=== PATIENT | female | born 1990 | race African-American/Black ===

== ENCOUNTER 2017-01-06 07:54 | Emergency (ER) | payer MEDICAID, OTHER ==
[~2017-01-06] VITALS: Ht 165.1 cm; Wt 66.0 kg
[~2017-01-06 07:54] MED LIST: IRON PO; MEDR150D9 IM; PRENATAL PO
[2017-01-06] MEDS ORDERED: MORPHINE SULFATE 4 MG/ML CPJ (NOT FOR IM USE) IV STA (08:35)
[2017-01-06] MEDS ORDERED: ONDANSETRON HCL 4MG/2ML VIAL IV STA (08:35)
[2017-01-06] MEDS ORDERED: SODIUM CHLORIDE 0.9% 1,000 ML IV ONE (08:35)
[2017-01-06 08:52] LABS: BASOPHILS % 0.3 % (0.0-2.0); EOSINOPHILS % 0.3 % (0.0-5.0); HEMATOCRIT. 39.5 % (36.0-48.0); HEMOGLOBIN. 13.5 g/dL (12.0-16.0); LYMPHOCYTES % 20.6 % (20.0-50.0); MEAN CORPUSCULAR HEMOGLOBIN 33.3 pg (28.0-32.0); MEAN CORPUSCULAR VOLUME 97.4 fL (81.0-99.0); MEAN PLATELET VOLUME 10.3 fl (7.4-10.4); NEUTROPHILS % 72.8 % (40.0-76.0); PLATELET 164 x1000/uL (130-400); RED BLOOD CELL COUNT 4.06 mill/uL (4.2-5.4); RED CELL DISTRIBUTION WIDTH 12.7 % (11.6-14.6)
[2017-01-06 09:06] LABS: CARBON DIOXIDE 23 mEq/L (21-32); CHLORIDE 107 mEq/L (98-107)
[2017-01-06 11:20] LABS: CLARITY URINE CLEAR (CLEAR); COLOR URINE YELLOW (YELLOW); GLUCOSE URINE NEGATIVE (NEGATIVE); KETONES URINE 1+ (NEGATIVE); LEUKOCYTE ESTERASE URINE NEGATIVE (NEGATIVE); NITRITE URINE NEGATIVE (NEGATIVE); OCCULT BLOOD URINE NEGATIVE (NEGATIVE); PROTEIN URINE NEGATIVE (NEGATIVE); SPECIFIC GRAVITY URINE 1.013 (1.005-1.030)
[2017-01-06 11:37] LABS: *AMPHETAMINES SCREEN URINE NEGATIVE (NEGATIVE); *BARBITURATES SCREEN URINE NEGATIVE (NEGATIVE); *BENZODIAZEPINES SCREEN URINE NEGATIVE (NEGATIVE); *COCAINE SCREEN URINE NEGATIVE (NEGATIVE); METHADONE URINE SCREEN NEGATIVE (NEGATIVE); PHENCYCLIDINE URINE SCREEN NEGATIVE (NEGATIVE)
[2017-01-06 11:46] LABS: CANNABINOID URINE SCREEN PRESUMTIVE POSITIVE (NEGATIVE); OPIATES URINE SCREEN PRESUMTIVE POSITIVE (NEGATIVE)
[2017-01-06] MEDS ORDERED: DICYCLOMINE HCL 10MG/ML 2ML AMP IM STA (13:29)
[2017-01-06] MEDS ORDERED: MORPHINE SULFATE 4 MG/ML CPJ (NOT FOR IM USE) IV ONE (13:30)
[2017-01-06] MEDS ORDERED: ONDANSETRON HCL 4MG/2ML VIAL IV ONE (13:30)
[2017-01-06 13:55] VITALS: BP 174/65
== END 2017-01-06 15:13 | disposition home or self-care (01) ==
LOC: ER 08:19
DX: R11.2 Nausea with vomiting, unspecified (principal); K59.00 Constipation, unspecified; R19.7 Diarrhea, unspecified; Z88.0 Allergy status to penicillin; Z87.440 Personal history of urinary (tract) infections
CPT/HCPCS: 36415; 80053; 80305; 81003; 81025; 83690; 85025; 96361; 96372; 96374; 96375; 96376; 99285; J0500; J2270; J2405; J7030; Z7610

== ENCOUNTER 2017-09-23 06:09 | Emergency (ER) | payer MEDICAID ==
[~2017-09-23] VITALS: Ht 165.1 cm; Wt 64.0 kg
[2017-09-23] MEDS ORDERED: ONDANSETRON HCL 4MG/2ML VIAL IV STA (07:01)
[2017-09-23] MEDS ORDERED: SODIUM CHLORIDE 0.9% 1,000 ML IV ONE (07:01)
[2017-09-23] MEDS ORDERED: MORPHINE SULFATE 4 MG/ML CPJ (NOT FOR IM USE) IV STA (07:01)
[2017-09-23 07:29] LABS: HEMATOCRIT. 37.6 % (36.0-48.0); MEAN CORPUSCULAR HEMOGLOBIN 33.1 pg (28.0-32.0); MEAN CORPUSCULAR VOLUME 95.7 fL (81.0-99.0); MEAN PLATELET VOLUME 9.7 fl (7.4-10.4); PLATELET 183 x1000/uL (130-400); RED BLOOD CELL COUNT 3.92 mill/uL (4.2-5.4); RED CELL DISTRIBUTION WIDTH 12.3 % (11.6-14.6)
[2017-09-23 07:37] LABS: INR 1.1
[2017-09-23 07:40] LABS: CHLORIDE 108 mEq/L (98-107)
[2017-09-23 08:09] LABS: HCG SCREEN NEGATIVE
[2017-09-23 09:11] LABS: PLATELET ESTIMATE NORMAL
[2017-09-23 10:00] LABS: CLARITY URINE CLOUDY (CLEAR); COLOR URINE YELLOW (YELLOW); KETONES URINE TRACE (NEGATIVE); LEUKOCYTE ESTERASE URINE 2+ (NEGATIVE); NITRITE URINE POSITIVE (NEGATIVE); OCCULT BLOOD URINE TRACE (NEGATIVE); PH URINE 6.5 (4.5-8.0); PROTEIN URINE 1+ (NEGATIVE); SPECIFIC GRAVITY URINE 1.014 (1.005-1.030)
[2017-09-23] MEDS ORDERED: CEFTRIAXONE 1 G PREMIX 50 ML IV ONE (11:15)
[2017-09-23] MEDS ORDERED: KETOROLAC 30MG/ML VIAL IV ONE (13:30)
[2017-09-23 15:37] VITALS: BP 124/68
== END 2017-09-23 15:44 | disposition home or self-care (01) ==
LOC: ER 06:09
DX: N12 Tubulo-interstitial nephritis, not specified as acute or chronic (principal); R42 Dizziness and giddiness; R07.9 Chest pain, unspecified; R06.02 Shortness of breath; Z88.0 Allergy status to penicillin
CPT/HCPCS: 36415; 71045; 76770; 80053; 81003; 83605; 83690; 84703; 85025; 85610; 87077; 87086; 87186; 96361; 96365; 96366; 96375; 99285; J0696; J1885; J2270; J2405; J7030; Z7610

== ENCOUNTER 2019-03-08 08:02 | Emergency (ER) | payer MEDICAID ==
[~2019-03-08] VITALS: Ht 167.6 cm; Wt 82.0 kg
[2019-03-08] MEDS ORDERED: ONDANSETRON HCL 4MG/2ML INJ IV STA (08:22)
[2019-03-08] MEDS ORDERED: MORPHINE SULFATE 4 MG/ML CPJ (NOT FOR IM USE) IV STA (08:22)
[2019-03-08 09:09] LABS: CHLORIDE 108 mEq/L (98-107)
[2019-03-08 09:10] LABS: PROTHROMBIN TIME 10.1 sec (9.6-11.0)
[2019-03-08 09:12] LABS: BASOPHILS % 0.2 % (0.0-2.0); EOSINOPHILS % 0.1 % (0.0-5.0); HEMATOCRIT. 37.7 % (36.0-48.0); HEMOGLOBIN. 12.9 g/dL (12.0-16.0); LYMPHOCYTES % 20.1 % (20.0-50.0); MEAN CORPUSCULAR HEMOGLOBIN 33.6 pg (28.0-32.0); MEAN CORPUSCULAR VOLUME 98.1 fL (81.0-99.0); MEAN PLATELET VOLUME 9.6 fl (7.4-10.4); MONOCYTES % 6.2 % (2.0-8.0); NEUTROPHILS % 73.4 % (40.0-76.0); PLATELET 221 x1000/uL (130-400); RED BLOOD CELL COUNT 3.84 mill/uL (4.2-5.4); RED CELL DISTRIBUTION WIDTH 12.5 % (11.6-14.6)
[2019-03-08] MEDS ORDERED: ACETAMINOPHEN 325MG TABLET PO ONE (09:15)
[2019-03-08 09:58] LABS: CLARITY URINE CLEAR (CLEAR); COLOR URINE YELLOW (YELLOW); KETONES URINE 2+ (NEGATIVE); LEUKOCYTE ESTERASE URINE 1+ (NEGATIVE); NITRITE URINE NEGATIVE (NEGATIVE); OCCULT BLOOD URINE NEGATIVE (NEGATIVE); PH URINE 7.5 (4.5-8.0); PROTEIN URINE NEGATIVE (NEGATIVE); SPECIFIC GRAVITY URINE 1.014 (1.005-1.030)
[2019-03-08 12:15] VITALS: BP 146/84
== END 2019-03-08 12:30 | disposition home or self-care (01) ==
LOC: ER 08:08
DX: O26.891 Other specified pregnancy related conditions, first trimester (principal); Z3A.01 Less than 8 weeks gestation of pregnancy; Z87.440 Personal history of urinary (tract) infections; K59.00 Constipation, unspecified; Z88.0 Allergy status to penicillin; Z79.899 Other long term (current) drug therapy
CPT/HCPCS: 36415; 71045; 76801; 76817; 80053; 81003; 81025; 83690; 84702; 85025; 85610; 93005; 96374; 99284; J2405; J2270

== ENCOUNTER 2019-03-18 11:48 | Inpatient (IN) | payer MEDICAID ==
[~2019-03-18] VITALS: Ht 165.1 cm; Wt 81.6 kg
[2019-03-18] MEDS ORDERED: MORPHINE SULFATE 4 MG/ML CPJ (NOT FOR IM USE) IV STA (13:06)
[2019-03-18] MEDS ORDERED: ONDANSETRON HCL 4MG/2ML INJ IV STA (13:06)
[2019-03-18] MEDS ORDERED: KETOROLAC 30MG/ML VIAL IV STA (13:06)
[2019-03-18] MEDS ORDERED: SODIUM CHLORIDE 0.9% 1000ML BAG (SEPSIS BOLUS) IV ONE (13:15)
[2019-03-18 13:30] LABS: CHLORIDE 106 mEq/L (98-107); PROTHROMBIN TIME 9.8 sec (9.6-11.0)
[2019-03-18 13:41] LABS: CLARITY URINE CLOUDY (CLEAR); COLOR URINE YELLOW (YELLOW); HCG SCREEN POSITIVE; KETONES URINE NEGATIVE (NEGATIVE); LEUKOCYTE ESTERASE URINE 3+ (NEGATIVE); NITRITE URINE NEGATIVE (NEGATIVE); OCCULT BLOOD URINE TRACE (NEGATIVE); PROTEIN URINE TRACE (NEGATIVE)
[2019-03-18 13:46] LABS: BASOPHILS % 0.2 % (0.0-2.0); EOSINOPHILS % 0.1 % (0.0-5.0); HEMATOCRIT. 37.7 % (36.0-48.0); HEMOGLOBIN. 12.9 g/dL (12.0-16.0); LYMPHOCYTES % 12.8 % (20.0-50.0); MEAN CORPUSCULAR HEMOGLOBIN 33.4 pg (28.0-32.0); MEAN CORPUSCULAR VOLUME 97.2 fL (81.0-99.0); MEAN PLATELET VOLUME 9.7 fl (7.4-10.4); MONOCYTES % 5.5 % (2.0-8.0); NEUTROPHILS % 81.4 % (40.0-76.0); PLATELET 231 x1000/uL (130-400); RED BLOOD CELL COUNT 3.88 mill/uL (4.2-5.4); RED CELL DISTRIBUTION WIDTH 12.8 % (11.6-14.6)
[2019-03-18 14:02] LABS: *AMPHETAMINES SCREEN URINE NEGATIVE (NEGATIVE); *BARBITURATES SCREEN URINE NEGATIVE (NEGATIVE); *BENZODIAZEPINES SCREEN URINE NEGATIVE (NEGATIVE); *COCAINE SCREEN URINE NEGATIVE (NEGATIVE); METHADONE URINE SCREEN NEGATIVE (NEGATIVE); OPIATES URINE SCREEN NEGATIVE (NEGATIVE)
[2019-03-18 14:03] LABS: PHENCYCLIDINE URINE SCREEN NEGATIVE (NEGATIVE)
[2019-03-18 14:12] LABS: CANNABINOID URINE SCREEN PRESUMTIVE POSITIVE (NEGATIVE)
[2019-03-18] MEDS ORDERED: CLINDAMYCIN 600 MG in DEXTROSE 5% WATER 50 ML IV ONE (16:00)
[2019-03-18] MEDS ORDERED: CLINDAMYCIN 600MG PREMIX 50 ML IV SCH (16:45)
[2019-03-18 20:00] VITALS: BP 138/78
[2019-03-18 20:30] VITALS: BP 138/78
[2019-03-18] MEDS ORDERED: MEDR150D9 IM (21:07)
[2019-03-18] MEDS ORDERED: LACTATED RINGERS 1,000 ML IV SCH (21:30)
[2019-03-18] MEDS ORDERED: CLINDAMYCIN 600 MG in DEXTROSE 5% WATER 50 ML IV SCH (22:00)
[2019-03-18] MEDS: ACETAMINOPHEN WITH CODEINE 300/30MG TABLET PO PRN (22:06)
[2019-03-18] MEDS: CLINDAMYCIN 600MG PREMIX 50 ML IV SCH (23:26)
[2019-03-18] MEDS: ONDANSETRON HCL 4MG/2ML INJ IV PRN (23:42)
[2019-03-19] VITALS: BP 148/81
[2019-03-19 04:00] VITALS: BP 120/66
[2019-03-19] MEDS: CLINDAMYCIN 600MG PREMIX 50 ML IV SCH ×3 (06:12→23:17)
[2019-03-19 07:15] LABS: HEMATOCRIT 31.2 % (36.0-48.0); HEMOGLOBIN 10.7 g/dL (12.0-16.0); MEAN CORPUSCULAR HEMOGLOBIN 33.6 pg (28.0-32.0); MEAN CORPUSCULAR VOLUME 98.3 fL (81.0-99.0); PLATELET 181 x1000/uL (130-400); RED BLOOD CELL COUNT 3.18 mill/uL (4.2-5.4); RED CELL DISTRIBUTION WIDTH 12.6 % (11.6-14.6)
[2019-03-19 08:00] VITALS: BP 120/73
[2019-03-19] MEDS: PRENATAL VIT/FE FUMARATE/FA TABLET PO SCH (08:59)
[2019-03-19] MEDS: ONDANSETRON HCL 4MG/2ML INJ IV PRN ×2 (08:59→20:30)
[2019-03-19] MEDS: ACETAMINOPHEN WITH CODEINE 300/30MG TABLET PO PRN ×3 (08:59→19:49)
[2019-03-19 12:00] VITALS: BP 135/75
[2019-03-19 16:00] VITALS: BP 141/75
[2019-03-19] MEDS: LACTATED RINGERS 1,000 ML IV SCH (19:58)
[2019-03-19 20:00] VITALS: BP 156/82
[2019-03-20] VITALS: BP 148/79
[2019-03-20] MEDS: ACETAMINOPHEN WITH CODEINE 300/30MG TABLET PO PRN ×3 (01:07→20:17)
[2019-03-20 04:00] VITALS: BP 148/79
[2019-03-20] MEDS: CLINDAMYCIN 600MG PREMIX 50 ML IV SCH ×3 (06:18→22:39)
[2019-03-20] MEDS: LACTATED RINGERS 1,000 ML IV SCH ×2 (06:24→17:53)
[2019-03-20] MEDS: PRENATAL VIT/FE FUMARATE/FA TABLET PO SCH (08:26)
[2019-03-20] MEDS: ONDANSETRON HCL 4MG/2ML INJ IV PRN ×2 (09:36→20:19)
[2019-03-20 10:45] LABS: HEMATOCRIT. 30.4 % (36.0-48.0); HEMOGLOBIN. 10.4 g/dL (12.0-16.0); MEAN CORPUSCULAR HEMOGLOBIN 33.4 pg (28.0-32.0); MEAN CORPUSCULAR VOLUME 97.4 fL (81.0-99.0); MEAN PLATELET VOLUME 9.1 fl (7.4-10.4); PLATELET 163 x1000/uL (130-400); RED BLOOD CELL COUNT 3.12 mill/uL (4.2-5.4); RED CELL DISTRIBUTION WIDTH 12.4 % (11.6-14.6)
[2019-03-20 13:31] LABS: CLARITY URINE CLEAR (CLEAR); COLOR URINE YELLOW (YELLOW); KETONES URINE 1+ (NEGATIVE); LEUKOCYTE ESTERASE URINE 2+ (NEGATIVE); NITRITE URINE NEGATIVE (NEGATIVE); OCCULT BLOOD URINE TRACE (NEGATIVE); PROTEIN URINE 1+ (NEGATIVE); SPECIFIC GRAVITY URINE 1.007 (1.005-1.030)
[2019-03-20 17:17] LABS: PLATELET ESTIMATE NORMAL
[2019-03-20 20:00] VITALS: BP 139/76
[2019-03-21] VITALS: BP 130/80
[2019-03-21] MEDS: LACTATED RINGERS 1,000 ML IV SCH (03:02)
[2019-03-21 04:00] VITALS: BP 136/90
[2019-03-21] MEDS: CLINDAMYCIN 600MG PREMIX 50 ML IV SCH ×3 (06:55→23:33)
[2019-03-21] MEDS: PRENATAL VIT/FE FUMARATE/FA TABLET PO SCH (09:27)
[2019-03-21] MEDS ORDERED: GENTAMICIN 100MG PREMIX 100 ML IV SCH (11:45)
[2019-03-21] MEDS ORDERED: GENTAMICIN 120MG PREMIX 100 ML IV NR (13:00)
[2019-03-21] MEDS: ONDANSETRON HCL 4MG/2ML INJ IV PRN (13:04)
[2019-03-21] MEDS: HYDROCODONE/ACETAMINOPHEN 5/325MG TABLET PO PRN ×2 (15:06→23:43)
[2019-03-21 20:00] VITALS: BP 127/70
[2019-03-21] MEDS: GENTAMICIN 100MG PREMIX 50 ML IV SCH (20:45)
[2019-03-22 00:41] VITALS: BP 132/83
[2019-03-22 04:00] VITALS: BP 111/63
[2019-03-22] MEDS: GENTAMICIN 100MG PREMIX 50 ML IV SCH ×3 (05:47→21:47)
[2019-03-22] MEDS: LACTATED RINGERS 1,000 ML IV SCH ×2 (05:48→13:30)
[2019-03-22] MEDS: CLINDAMYCIN 600MG PREMIX 50 ML IV SCH ×3 (06:51→23:25)
[2019-03-22 07:47] LABS: HEMATOCRIT 30.2 % (36.0-48.0); HEMOGLOBIN 10.5 g/dL (12.0-16.0); MEAN CORPUSCULAR HEMOGLOBIN 33.5 pg (28.0-32.0); MEAN CORPUSCULAR VOLUME 96.8 fL (81.0-99.0); PLATELET 208 x1000/uL (130-400); RED BLOOD CELL COUNT 3.12 mill/uL (4.2-5.4); RED CELL DISTRIBUTION WIDTH 12.6 % (11.6-14.6)
[2019-03-22 08:00] VITALS: BP 130/82
[2019-03-22] MEDS: PRENATAL VIT/FE FUMARATE/FA TABLET PO SCH (08:55)
[2019-03-22 09:14] LABS: CHLORIDE 102 mEq/L (98-107)
[2019-03-22 12:00] VITALS: BP 143/72
[2019-03-22] MEDS: ONDANSETRON HCL 4MG/2ML INJ IV PRN (14:14)
[2019-03-22 16:00] VITALS: BP 141/75
[2019-03-22] MEDS: HYDROCODONE/ACETAMINOPHEN 5/325MG TABLET PO PRN (16:47)
[2019-03-22 20:00] VITALS: BP 108/63
[2019-03-22] MEDS ORDERED: POTASSIUM CHLORIDE 20MEQ TABLET SR PO NR (22:00)
[2019-03-23] VITALS: BP_SYST 125; BP_SYST 83; BP_DIAS 83
[2019-03-23 04:00] VITALS: BP 116/65
[2019-03-23] MEDS: GENTAMICIN 100MG PREMIX 50 ML IV SCH ×2 (05:31→12:20)
[2019-03-23 06:08] LABS: CHLORIDE 104 mEq/L (98-107)
[2019-03-23 06:26] LABS: GENTAMICIN TROUGH 0.4 ug/mL (<2.0)
[2019-03-23] MEDS: CLINDAMYCIN 600MG PREMIX 50 ML IV SCH (06:54)
[2019-03-23 06:57] LABS: HEMATOCRIT. 33.1 % (36.0-48.0); HEMOGLOBIN. 11.4 g/dL (12.0-16.0); MEAN CORPUSCULAR HEMOGLOBIN 33.5 pg (28.0-32.0); MEAN CORPUSCULAR VOLUME 96.9 fL (81.0-99.0); MEAN PLATELET VOLUME 9.5 fl (7.4-10.4); PLATELET 250 x1000/uL (130-400); RED BLOOD CELL COUNT 3.41 mill/uL (4.2-5.4)
[2019-03-23] MEDS: PRENATAL VIT/FE FUMARATE/FA TABLET PO SCH (08:39)
[2019-03-23 08:54] LABS: CHLORIDE 103 mEq/L (98-107)
[2019-03-23 13:36] LABS: PLATELET ESTIMATE NORMAL
[2019-03-23 17:02] VITALS: BP 118/77
== END 2019-03-23 17:25 | disposition home or self-care (01) | DRG 566 ==
LOC: ER 12:08 → ENRESERV 15:29 → CANRESERV 15:29 → 6EST 15:56 → EDBEDREQ 16:07 → ENRESERV 19:17
PROVIDERS: ADMIT Obstetrics & Gynecology; ATTEND Obstetrics & Gynecology
DX: O23.01 Infections of kidney in pregnancy, first trimester (principal); O99.321 Drug use complicating pregnancy, first trimester; O99.281 Endocrine, nutritional and metabolic diseases complicating pregnancy, first trimester; F12.10 Cannabis abuse, uncomplicated; E86.0 Dehydration; O99.011 Anemia complicating pregnancy, first trimester; D64.9 Anemia, unspecified; B96.20 Unspecified Escherichia coli [E. coli] as the cause of diseases classified elsewhere; Z3A.08 8 weeks gestation of pregnancy; Z79.899 Other long term (current) drug therapy; Z88.0 Allergy status to penicillin; Z88.1 Allergy status to other antibiotic agents
CPT/HCPCS: 36415; 76700; 76801; 80048; 80170; 80305; 81003; 83605; 84145; 84484; 84702; 84703; 85027; 86850; 86900; 87077; 87186; 93005; 99285; C1893; J1580; J2270; J2405; J3490; J7030; J7060; J7120

== ENCOUNTER 2019-08-03 21:20 | Observation (INO) | payer MEDICAID ==
[~2019-08-03] VITALS: Ht 167.6 cm; Wt 85.3 kg
[~2019-08-03 21:20] MED LIST changes: -IRON PO; -PRENATAL PO
[2019-08-03] MEDS ORDERED: PREN1TAB78 MT (21:50)
[2019-08-03] MEDS ORDERED: [UNRECOGNIZED DRUG - CODE] IM (21:51)
[2019-08-03] MEDS ORDERED: LACTATED RINGERS 1,000 ML IV SCH (22:18)
[2019-08-03 22:52] LABS: BASOPHILS % 0.7 % (0.0-2.0); EOSINOPHILS % 1.3 % (0.0-5.0); HEMATOCRIT. 34.3 % (36.0-48.0); LYMPHOCYTES % 30.2 % (20.0-50.0); MEAN CORPUSCULAR VOLUME 99.8 fL (81.0-99.0); MONOCYTES % 8.8 % (2.0-8.0); PLATELET 191 x1000/uL (130-400); RED BLOOD CELL COUNT 3.44 mill/uL (4.2-5.4); RED CELL DISTRIBUTION WIDTH 13.3 % (11.6-14.6)
[2019-08-03 23:03] LABS: CHLORIDE 108 mEq/L (98-107)
[2019-08-03 23:05] LABS: CLARITY URINE CLEAR (CLEAR); COLOR URINE YELLOW (YELLOW); KETONES URINE NEGATIVE (NEGATIVE); LEUKOCYTE ESTERASE URINE NEGATIVE (NEGATIVE); NITRITE URINE NEGATIVE (NEGATIVE); OCCULT BLOOD URINE NEGATIVE (NEGATIVE); PROTEIN URINE NEGATIVE (NEGATIVE); SPECIFIC GRAVITY URINE 1.014 (1.005-1.030)
[2019-08-03 23:08] LABS: D-DIMER 2.36 mg/L FEU (<0.50); INR 0.9; PARTIAL THROMBOPLASTIN TIME 26.8 sec (23.4-31.0); PROTHROMBIN TIME 9.5 sec (9.6-11.0)
== END 2019-08-03 23:54 | disposition home or self-care (01) ==
LOC: 8 EST LDRP 21:20
PROVIDERS: ADMIT Obstetrics & Gynecology; ATTEND Obstetrics & Gynecology
DX: O26.892 Other specified pregnancy related conditions, second trimester (principal); R19.7 Diarrhea, unspecified; R10.9 Unspecified abdominal pain; Z3A.27 27 weeks gestation of pregnancy
CPT/HCPCS: 36415; 80053; 81003; 82731; 84550; 85025; 85379; 85384; 85610; 85730; 96360; 99281; G0378; 96361

== ENCOUNTER 2019-10-01 11:32 | Inpatient (IN) | payer MEDICAID ==
[~2019-10-01] VITALS: Ht 167.6 cm; Wt 91.6 kg
[~2019-10-01 11:32] MED LIST changes: +PREN1TAB78 MT; +[UNRECOGNIZED DRUG - CODE] IM
[2019-10-01] MEDS ORDERED: HYDRALAZINE 20MG/ML VIAL IV PRN (13:00)
[2019-10-01] MEDS ORDERED: LABETALOL HCL 5MG/ML VIAL 20ML IV PRN ×2 (13:00)
[2019-10-01] MEDS ORDERED: LABETALOL HCL 200MG TABLET PO STA (14:37)
[2019-10-01 14:40] LABS: BASOPHILS % 0.6 % (0.0-2.0); EOSINOPHILS % 0.5 % (0.0-5.0); HEMATOCRIT. 37.6 % (36.0-48.0); HEMOGLOBIN. 12.8 g/dL (12.0-16.0); MEAN CORPUSCULAR HEMOGLOBIN 34.9 pg (28.0-32.0); MEAN PLATELET VOLUME 11.3 fl (7.4-10.4); MONOCYTES % 10.1 % (2.0-8.0); NEUTROPHILS % 62.8 % (40.0-76.0); PLATELET 169 x1000/uL (130-400); RED BLOOD CELL COUNT 3.68 mill/uL (4.2-5.4); RED CELL DISTRIBUTION WIDTH 13.1 % (11.6-14.6)
[2019-10-01 14:48] LABS: CHLORIDE 109 mEq/L (98-107)
[2019-10-01 14:58] LABS: D-DIMER 2.51 mg/L FEU (<0.50); INR 0.8; PARTIAL THROMBOPLASTIN TIME 25.2 sec (23.4-31.0); PROTHROMBIN TIME 9.2 sec (9.6-11.0)
[2019-10-01 15:31] LABS: CLARITY URINE CLOUDY (CLEAR); COLOR URINE YELLOW (YELLOW); KETONES URINE NEGATIVE (NEGATIVE); LEUKOCYTE ESTERASE URINE TRACE (NEGATIVE); NITRITE URINE NEGATIVE (NEGATIVE); OCCULT BLOOD URINE NEGATIVE (NEGATIVE); PROTEIN URINE 1+ (NEGATIVE); SPECIFIC GRAVITY URINE 1.014 (1.005-1.030); UROBILINOGEN URINE 0.2 E.U./dL (0.2-1.0)
[2019-10-01] MEDS: LABETALOL HCL 5MG/ML VIAL 20ML IV PRN ×2 (19:20→19:27)
[2019-10-01] MEDS: LABETALOL HCL 200MG TABLET PO SCH (19:43)
[2019-10-01] MEDS ORDERED: NIFEDIPINE 10MG CAPSULE PO NR (22:36)
[2019-10-02] VITALS (12 sets, daily range): BP systolic 127–154; BP diastolic 72–111
[2019-10-02] MEDS: ACETAMINOPHEN 325MG TABLET PO PRN ×2 (02:05→14:58)
[2019-10-02] MEDS: LACTATED RINGERS 1,000 ML IV SCH ×2 (03:36→04:41)
[2019-10-02] MEDS ORDERED: MAGNESIUM 4 G PREMIX 100 ML IV NR (04:30)
[2019-10-02] MEDS: MAGNESIUM 20 G PREMIX (L & D) 500 ML IV SCH ×2 (05:00→16:09)
[2019-10-02 05:54] LABS: CHLORIDE 109 mEq/L (98-107)
[2019-10-02 05:55] LABS: BASOPHILS % 0.4 % (0.0-2.0); EOSINOPHILS % 0.9 % (0.0-5.0); HEMATOCRIT. 35.8 % (36.0-48.0); HEMOGLOBIN. 12.2 g/dL (12.0-16.0); LYMPHOCYTES % 30.2 % (20.0-50.0); MEAN CORPUSCULAR HEMOGLOBIN 34.8 pg (28.0-32.0); MEAN CORPUSCULAR VOLUME 102.2 fL (81.0-99.0); MEAN PLATELET VOLUME 10.8 fl (7.4-10.4); MONOCYTES % 8.7 % (2.0-8.0); NEUTROPHILS % 59.8 % (40.0-76.0); PLATELET 168 x1000/uL (130-400); RED BLOOD CELL COUNT 3.51 mill/uL (4.2-5.4); RED CELL DISTRIBUTION WIDTH 13.3 % (11.6-14.6)
[2019-10-02 06:20] LABS: FIBRINOGEN 470 mg/dL (200-400); PARTIAL THROMBOPLASTIN TIME 27.1 sec (23.4-31.0)
[2019-10-02 06:23] LABS: CLARITY URINE CLEAR (CLEAR); COLOR URINE YELLOW (YELLOW); KETONES URINE NEGATIVE (NEGATIVE); LEUKOCYTE ESTERASE URINE NEGATIVE (NEGATIVE); NITRITE URINE NEGATIVE (NEGATIVE); OCCULT BLOOD URINE NEGATIVE (NEGATIVE); PROTEIN URINE NEGATIVE (NEGATIVE); SPECIFIC GRAVITY URINE 1.008 (1.005-1.030); UROBILINOGEN URINE 0.2 E.U./dL (0.2-1.0)
[2019-10-02 06:52] LABS: INR < 0.9; PROTHROMBIN TIME < 9.0 sec (9.6-11.0)
[2019-10-02] MEDS ORDERED: ACETAMINOPHEN 500MG TABLET PO NR (08:28)
[2019-10-02] MEDS: LABETALOL HCL 200MG TABLET PO SCH ×2 (08:50→16:56)
[2019-10-02 11:52] LABS: *AMPHETAMINES SCREEN URINE NEGATIVE (NEGATIVE); *BARBITURATES SCREEN URINE NEGATIVE (NEGATIVE); *BENZODIAZEPINES SCREEN URINE NEGATIVE (NEGATIVE); *COCAINE SCREEN URINE NEGATIVE (NEGATIVE)
[2019-10-02 11:53] LABS: CANNABINOID URINE SCREEN NEGATIVE (NEGATIVE); METHADONE URINE SCREEN NEGATIVE (NEGATIVE); OPIATES URINE SCREEN NEGATIVE (NEGATIVE); PHENCYCLIDINE URINE SCREEN NEGATIVE (NEGATIVE)
[2019-10-02] MEDS: MISOPROSTOL 100MCG TABLET VG PRN ×3 (14:58→23:14)
[2019-10-02] MEDS ORDERED: ROPIVACAINE HCL/PF EPIDURAL 200 ML EPI SCH (16:00)
[2019-10-03] MEDS: LABETALOL HCL 200MG TABLET PO SCH ×2 (00:43→09:28)
[2019-10-03] MEDS ORDERED: LACTATED RINGERS 1,000 ML IV SCH (02:00)
[2019-10-03] MEDS: MAGNESIUM 20 G PREMIX (L & D) 500 ML IV SCH (03:50)
[2019-10-03] MEDS: MISOPROSTOL 100MCG TABLET VG PRN (04:03)
[2019-10-03] MEDS ORDERED: DEXT 5%/LR + PITOCIN 20UNITS/L 1,000 ML IV SCH ×2 (07:02→09:17)
[2019-10-03] MEDS ORDERED: CARBOPROST TROMETHAMINE 250 MCG/ML AMPUL IM PRN (07:15)
[2019-10-03] MEDS ORDERED: NALOXONE HCL 0.4 MG/ML 1ML VIAL IM PRN (07:15)
[2019-10-03] MEDS ORDERED: BUTORPHANOL TARTRATE 2 MG/ML VIAL IV PRN (07:15)
[2019-10-03] MEDS ORDERED: METHYLERGONOVINE MALEATE 0.2 MG/ML IM PRN (07:15)
[2019-10-03] MEDS ORDERED: LIDOCAINE HCL 1% 20ML VIAL (Pyxis) INJ INFIL SCH (07:15)
[2019-10-03 08:00] VITALS: BP 140/78
[2019-10-03] MEDS ORDERED: ACETAMINOPHEN WITH CODEINE 300/30MG TABLET PO PRN (09:30)
[2019-10-03] MEDS ORDERED: BISACODYL 10MG SUPP PR PRN (09:30)
[2019-10-03] MEDS ORDERED: BENZOCAINE/LANOLIN/ALOE VERA SPRAY TOP PRN (09:30)
[2019-10-03] MEDS ORDERED: HEMORRHOIDAL SUPP PR PRN (09:30)
[2019-10-03] MEDS ORDERED: GLYCERIN/WITCH HAZEL LEAF MEDICATED PAD TOP PRN (09:30)
[2019-10-03] MEDS ORDERED: IBUPROFEN 400MG TABLET PO PRN (09:30)
[2019-10-03] MEDS ORDERED: MAGNESIUM 20 G PREMIX (L & D) 500 ML IV SCH (12:14)
[2019-10-03 13:00] VITALS: BP 143/88
[2019-10-03] MEDS: IBUPROFEN 800MG TABLET PO PRN ×2 (13:55→20:43)
[2019-10-03] MEDS: MAGNESIUM/ALUMINUM HYDROXIDE/SIMETHICONE 30ML UDC PO SCH (13:55)
[2019-10-03] MEDS: SIMETHICONE 80MG TABLET CHEW PO SCH ×2 (13:56→20:43)
[2019-10-03 16:00] VITALS: BP 130/77
[2019-10-03 20:30] VITALS: BP 138/81
[2019-10-03] MEDS: DOCUSATE SODIUM 100MG CAPSULE PO SCH (20:43)
[2019-10-04 00:25] VITALS: BP 114/65
[2019-10-04] MEDS: LABETALOL HCL 200MG TABLET PO SCH ×3 (02:09→17:59)
[2019-10-04 04:45] VITALS: BP 125/71
[2019-10-04 08:00] VITALS: BP 142/92
[2019-10-04 08:33] LABS: BASOPHILS % 0.3 % (0.0-2.0); EOSINOPHILS % 0.9 % (0.0-5.0); HEMATOCRIT. 34.5 % (36.0-48.0); HEMOGLOBIN. 11.8 g/dL (12.0-16.0); LYMPHOCYTES % 26.4 % (20.0-50.0); MEAN CORPUSCULAR VOLUME 101.8 fL (81.0-99.0); MEAN PLATELET VOLUME 10.6 fl (7.4-10.4); MONOCYTES % 7.8 % (2.0-8.0); NEUTROPHILS % 64.6 % (40.0-76.0); PLATELET 159 x1000/uL (130-400); RED BLOOD CELL COUNT 3.38 mill/uL (4.2-5.4); RED CELL DISTRIBUTION WIDTH 12.9 % (11.6-14.6)
[2019-10-04] MEDS: PRENATAL VIT/FE FUMARATE/FA TABLET PO SCH (09:00)
[2019-10-04] MEDS: IBUPROFEN 800MG TABLET PO PRN (10:08)
[2019-10-04 12:00] VITALS: BP 131/91
[2019-10-04 16:00] VITALS: BP 138/82
[2019-10-04] MEDS: FERROUS SULFATE 325MG TABLET PO SCH (17:30)
[2019-10-04] MEDS: MAGNESIUM/ALUMINUM HYDROXIDE/SIMETHICONE 30ML UDC PO SCH ×2 (17:30→21:00)
[2019-10-04] MEDS: SIMETHICONE 80MG TABLET CHEW PO SCH ×2 (18:00→21:00)
[2019-10-04 20:00] VITALS: BP 122/70
[2019-10-04] MEDS: DOCUSATE SODIUM 100MG CAPSULE PO SCH (21:00)
[2019-10-05] MEDS: IBUPROFEN 800MG TABLET PO PRN ×2 (01:30→09:45)
[2019-10-05 04:00] VITALS: BP 135/72
[2019-10-05] MEDS: LABETALOL HCL 200MG TABLET PO SCH (04:16)
[2019-10-05 08:00] VITALS: BP 140/86
[2019-10-05] MEDS: PRENATAL VIT/FE FUMARATE/FA TABLET PO SCH (09:45)
[2019-10-05] MEDS: FERROUS SULFATE 325MG TABLET PO SCH (09:45)
== END 2019-10-05 10:29 | disposition home or self-care (01) | DRG 560 ==
LOC: 8 EST LDRP 11:32 → INTOOBSV 11:32 → OBSVTOIN 11:32 → 8EST 10-03 13:30
PROVIDERS: ADMIT Obstetrics & Gynecology; ATTEND Obstetrics & Gynecology
PROC: 10E0XZZ Delivery of Products of Conception, External Approach (ICD-10-PCS; principal; 2019-10-03)
DX: O10.92 Unspecified pre-existing hypertension complicating childbirth (principal); O60.14X0 Preterm labor third trimester with preterm delivery third trimester, not applicable or unspecified; O62.3 Precipitate labor; O14.94 Unspecified pre-eclampsia, complicating childbirth; Z3A.35 35 weeks gestation of pregnancy; Z37.0 Single live birth; Z87.440 Personal history of urinary (tract) infections; Z88.0 Allergy status to penicillin; Z88.1 Allergy status to other antibiotic agents
CPT/HCPCS: 36415; 76805; 76818; 80053; 80305; 81003; 83735; 84550; 85025; 85379; 85384; 86592; 86703; 86706; 86762; 86850; 86900; 87340; 99281; G0378; J0595; J2590; J3475; J3490

== ENCOUNTER 2021-02-18 11:28 | Emergency (ER) | payer MEDICAID, OTHER ==
[~2021-02-18] VITALS: Ht 165.1 cm; Wt 68.0 kg
[~2021-02-18 11:28] MED LIST changes: -PREN1TAB78 MT; -[UNRECOGNIZED DRUG - CODE] IM
[2021-02-18] MEDS ORDERED: IBUPROFEN 600MG TABLET PO ONE (13:15)
[2021-02-18] MEDS: LIDOCAINE 5% PATCH TOP SCH ×2 (13:59→14:04)
[2021-02-18] MEDS ORDERED: LIDO700A15 TP (14:08)
[2021-02-18] MEDS ORDERED: BACL-141 MT (14:08)
[2021-02-18] MEDS ORDERED: IBUP-2029 MT (14:08)
[2021-02-18] MEDS ORDERED: ACET-2708 MT (14:08)
[2021-02-18 14:21] VITALS: BP 121/83
== END 2021-02-18 14:24 | disposition home or self-care (01) ==
LOC: ER 11:28
DX: S06.0X9A Concussion with loss of consciousness of unspecified duration, initial encounter (principal); Z88.0 Allergy status to penicillin; Y08.89XA Assault by other specified means, initial encounter; Y93.89 Activity, other specified; Y92.018 Other place in single-family (private) house as the place of occurrence of the external cause; Y99.8 Other external cause status
CPT/HCPCS: 81025; 99283

== ENCOUNTER 2021-04-17 07:10 | Emergency (ER) | payer MEDICAID, OTHER ==
[~2021-04-17] VITALS: Ht 165.1 cm; Wt 69.0 kg
[~2021-04-17 07:10] MED LIST changes: +ACET-2708 MT; +BACL-141 MT; +IBUP-2029 MT; +LIDO700A15 TP
[2021-04-17 08:15] LABS: BASOPHILS % 0.2 % (0.0-2.0); EOSINOPHILS % 0.1 % (0.0-5.0); HEMATOCRIT. 40.6 % (36.0-48.0); HEMOGLOBIN. 13.8 g/dL (12.0-16.0); MEAN CORPUSCULAR HEMOGLOBIN 33.1 pg (28.0-32.0); MEAN CORPUSCULAR VOLUME 97.4 fL (81.0-99.0); MEAN PLATELET VOLUME 10.1 fl (7.4-10.4); MONOCYTES % 2.9 % (2.0-8.0); NEUTROPHILS % 88.8 % (40.0-76.0); PLATELET 215 x1000/uL (130-400); RED BLOOD CELL COUNT 4.17 mill/uL (4.2-5.4); RED CELL DISTRIBUTION WIDTH 12.4 % (11.6-14.6)
[2021-04-17] MEDS ORDERED: ONDANSETRON HCL 4MG/2ML INJ IV ONE (08:15)
[2021-04-17] MEDS ORDERED: ACETAMINOPHEN 325MG TABLET PO ONE (08:15)
[2021-04-17] MEDS ORDERED: SODIUM CHLORIDE 0.9% 1,000 ML IV ONE ×2 (08:15→12:30)
[2021-04-17 08:21] LABS: CHLORIDE 107 mEq/L (98-107)
[2021-04-17 08:26] LABS: ETHANOL BLOOD < 10 mg/dL
[2021-04-17] MEDS ORDERED: FAMOTIDINE 20MG/2ML VIAL IV ONE (09:00)
[2021-04-17] MEDS ORDERED: MAGNESIUM/ALUMINUM HYDROXIDE/SIMETHICONE 30ML UDC PO ONE (09:00)
[2021-04-17 09:04] LABS: HCG SCREEN NEGATIVE
[2021-04-17 10:37] LABS: CLARITY URINE CLEAR (CLEAR); COLOR URINE YELLOW (YELLOW); KETONES URINE 1+ (NEGATIVE); LEUKOCYTE ESTERASE URINE TRACE (NEGATIVE); NITRITE URINE NEGATIVE (NEGATIVE); OCCULT BLOOD URINE NEGATIVE (NEGATIVE); PH URINE 6.5 (4.5-8.0); PROTEIN URINE 1+ (NEGATIVE); SPECIFIC GRAVITY URINE 1.016 (1.005-1.030)
[2021-04-17 11:38] LABS: *AMPHETAMINES SCREEN URINE NEGATIVE (NEGATIVE); *BARBITURATES SCREEN URINE NEGATIVE (NEGATIVE); *BENZODIAZEPINES SCREEN URINE NEGATIVE (NEGATIVE); *COCAINE SCREEN URINE NEGATIVE (NEGATIVE); METHADONE URINE SCREEN NEGATIVE (NEGATIVE)
[2021-04-17 11:39] LABS: OPIATES URINE SCREEN NEGATIVE (NEGATIVE); PHENCYCLIDINE URINE SCREEN NEGATIVE (NEGATIVE)
[2021-04-17 11:55] LABS: CANNABINOID URINE SCREEN PRESUMTIVE POSITIVE (NEGATIVE)
[2021-04-17] MEDS ORDERED: KETOROLAC 15MG/ML VIAL IV ONE (12:30)
[2021-04-17] MEDS ORDERED: PROCHLORPERAZINE MALEATE 10MG TABLET PO ONE (12:30)
[2021-04-17] MEDS ORDERED: FAMO-135 MT (14:26)
[2021-04-17] MEDS ORDERED: COM10 MT (14:26)
[2021-04-17 14:30] VITALS: BP 149/78
== END 2021-04-17 14:59 | disposition home or self-care (01) ==
LOC: ER 07:10
DX: R10.13 Epigastric pain (principal); E86.0 Dehydration; F12.10 Cannabis abuse, uncomplicated; Z88.0 Allergy status to penicillin
CPT/HCPCS: 36415; 71045; 76770; 80053; 80305; 80320; 81003; 81025; 83690; 84703; 85025; 85379; 93005; 96374; 96375; 99285; J1885; J2405; J3490; J7030; Q0164; G0480

== ENCOUNTER 2021-11-01 11:54 | Emergency (ER) | payer MEDICAID, OTHER ==
[~2021-11-01] VITALS: Ht 165.1 cm; Wt 72.0 kg
[~2021-11-01 11:54] MED LIST changes: +COM10 MT; +FAMO-135 MT
[2021-11-01 12:17] VITALS: BP 154/102
[2021-11-01] MEDS ORDERED: IBUP-2029 MT (12:28)
== END 2021-11-01 12:48 | disposition home or self-care (01) ==
LOC: ER 11:54
DX: S09.8XXA Other specified injuries of head, initial encounter (principal); V49.19XA Passenger injured in collision with other motor vehicles in nontraffic accident, initial encounter; Y93.89 Activity, other specified; Y92.488 Other paved roadways as the place of occurrence of the external cause; Z88.0 Allergy status to penicillin
CPT/HCPCS: 99282

== ENCOUNTER 2021-12-14 13:32 | Emergency (ER) | payer MEDICAID ==
[~2021-12-14] VITALS: Ht 167.6 cm; Wt 73.0 kg
[2021-12-14] MEDS ORDERED: FLUT9.9S16 BOTHNSTRLS (17:54)
[2021-12-14] MEDS ORDERED: AZIT250T12 MT (17:54)
[2021-12-14] MEDS ORDERED: KETOROLAC 60MG/2ML VIAL IM ONE (18:00)
[2021-12-14 19:09] VITALS: BP 137/89
== END 2021-12-14 19:14 | disposition home or self-care (01) ==
LOC: ER 13:32
DX: J32.9 Chronic sinusitis, unspecified (principal); Z88.0 Allergy status to penicillin; Z79.899 Other long term (current) drug therapy
CPT/HCPCS: 71045; 81025; 96372; 99283; J1885